=== PATIENT | female | born 1985 | race American Indian/Alaskan Native ===

== ENCOUNTER 2022-02-03 01:45 | Emergency (ER) | payer SELFPAY ==
--- NOTE | 2022-02-03 02:12 | Emergency Department Report ---
ED General Adult HPI - General Chief complaint: Eye Problems Stated complaint: I put some glue in my eye by accident Time Seen by Provider: 02/03/22 01:59 Source: patient, RN notes reviewed Mode of arrival: Ambulatory Limitations: No Limitations - History of Present Illness Initial comments: The patient is a pleasant 36-year-old female who reports that she is not , who wears contact lenses and glasses, who presents to the ER today with a complaint of right-sided eye discomfort and pain, after accidentally putting glue instead of eyedrops into her right eye. She washed her eyes out at home. She has mild burning pain. She has no loss of vision. She has some discomfort when she looks to the right. She is concerned about a retained cont act lens. She denies additional injuries and complaints. -: hour(s) Location: eyes (Right) Radiation: non-radiation Quality: aching Consistency: constant Improves with: medication Worsens with: movement - Related Data Previous Rx's Medication Instructions Recorded Last Taken Type Bacitracin [Bacitracin Ophth] 1 applicatio OD Q4HR 7 Days #1 tube 02/03/22 Unknown Rx Mineral Oil/Petrolatum,White 1 applic OD PRN PRN #1 bottle 02/03/22 Unknown Rx [Refresh Lacri-Lube Ointment] Allergies Allergy/AdvReac Type Severity Reaction Status Date / Time No Known Allergies Allergy Verified 02/03/22 02:20 ED Review of Systems ROS: Stated complaint: EYE INJURY Other details as noted in HPI Comment: All other systems reviewed and negative Constitutional: denies: fever Eyes: eye pain, eye discharge, vision change (Blurry vision) ED Past Medical Hx - Medications Home Medications: Home Medications Medication Instructions Recorded Confirmed Last Taken Type Bacitracin [Bacitracin Ophth] 1 applicatio OD Q4HR 7 Days #1 tube 02/03/22 Unknown Rx Mineral Oil/Petrolatum,White 1 applic OD PRN PRN #1 bottle 02/03/22 Unknown Rx [Refresh Lacri-Lube Ointment] ED Physical Exam - General Limitations: No Limitations General appearance: alert, in no apparent distress - Head Head exam: Present: atraumatic, normocephalic - Eye Eye exam: Present: normal appearance, PERRL, EOMI, scleral icterus, other (There is no direct or consensual photophobia. There is a negative Fermín sign. There is minimal fluorescein uptake at 12:00 on the cornea. There is no obvious retained contact lens). Absent: nystagmus, periorbital swelling, periorbital tenderness - ENT ENT exam: Present: normal exam, normal orophraynx, mucous membranes moist, normal external ear exam - Neck Neck exam: Present: normal inspection, full ROM. Absent: tenderness, meningismus - Respiratory Respiratory exam: Present: normal lung sounds bilaterally. Absent: respiratory distress, wheezes, rales, rhonchi, stridor, decreased breath sounds - Cardiovascular Cardiovascular Exam: Present: regular rate, normal rhythm, normal heart sounds. Absent: bradycardia, tachycardia, irregular rhythm, systolic murmur, diastolic murmur, rubs, gallop - GI/Abdominal GI/Abdominal exam: Present: soft. Absent: distended, tenderness, guarding, rebound, rigid, pulsatile mass - Extremities Exam Extremities exam: Present: normal inspection, full ROM, other (2+ pulses noted in the bilateral upper and lower extremities. There is no palpable cord. negative Homans sign. Muscular compartments are soft. The pelvis is stable.). Absent: pedal edema, calf tenderness - Back Exam Back exam: Present: normal inspection, full ROM. Absent: tenderness, CVA tenderness (R), CVA tenderness (L), paraspinal tenderness, vertebral tenderness - Neurological Exam Neurological exam: Present: alert, oriented X3, normal gait, other (No facial droop. Tongue midline. Extraocular movements intact bilaterally. Facial sensation intact to light touch in V1, V2, V3 distribution bilaterally. 5 and a 5 strength in 4 extremities. Sensation intact to light touch in 4 extremities.). Absent: motor sensory deficit - Psychiatric Psychiatric exam: Present: anxious - Skin Skin exam: Present: warm, dry, intact, normal color. Absent: rash ED Course Vital Signs 02/03/22 01:52 Temperature 98.3 F Pulse Rate 99 H Respiratory 16 Rate Blood Pressure 138/92 O2 Sat by Pulse 97 Oximetry ED Medical Decision Making - Lab Data Vital Signs 02/03/22 01:52 Temperature 98.3 F Pulse Rate 99 H Respiratory 16 Rate Blood Pressure 138/92 O2 Sat by Pulse 97 Oximetry - Medical Decision Making Differential diagnosis, including but not limited to: Chemical exposure, corneal abrasion Assessment and plan: 36-year-old female with isolated right-sided eye pain, after accidental glue exposure and instillation. She washed her eyes out at home. Patient is taken back by me to the eyewash station, and she thoroughly irrigated her right eye for about 20 minutes. Visual acuity intact to finger counting, color perception, reading at a close distance She has no Fermín sign, and minimal fluorescein uptake at 12:00. The eye itself, and the superior and inferior eyelids are everted, and thoroughly examined, and a retained contact lens or foreign body is not identified. Start patient on artificial tears, and appropriate topical antibiotic drops. Patient strongly encouraged to follow-up closely with an outpatient lace and textiles restorer or employer relations representative, and also to not place contact lenses on her right eye until cleared to do so by an ocular specialist. She had some improvement in symptoms with initiation/application of tetracaine to the right eye, and she has no additional injuries or complaints. Return precautions reviewed. All questions answered. Critical care attestation.: If time is entered above; I have spent that time in minutes in the direct care of this critically ill patient, excluding procedure time. ED Disposition Clinical Impression: Chemical exposure of eye Disposition: 01 HOME / SELF CARE / HOMELESS Is pt being admited?: No Does the pt Need Aspirin: No Condition: Good Instructions: Chemical Conjunctivitis, Adult Additional Instructions: Patient may wear glasses, but should not wear contact lenses in her right eye until cleared to do so by an lace and textiles restorer or employer relations representative. Use the artificial tears as often as as needed for dry eye and right-sided ocular discomfort, and use the antibiotic ointment as directed. Recommend follow-up with an lace and textiles restorer or employer relations representative within the next 3 to 5 days for repeat checkup and evaluation. Patient may take [id number] Tylenol or ibuprofen as needed for physical pain. Please return to the emergency room right away with new pain, worsened pain, migration of pain, projectile vomiting, change in mental status, confusion, inability tolerate liquid feeds, new, worsened or different symptoms not present on the initial emergency room evaluation Referrals: KRISTINE RODRIGUEZ MD [Primary Care Provider] - 3-5 Days CHELSY HAMILTON MD [Staff Physician] - 3-5 Days CHARLENE KAUR MD [Staff Physician] - 3-5 Days GENEVA MEADOWS MD [Staff Physician] - 3-5 Days Forms: Work/School Release Form(ED)
[2022-02-03] MEDS ORDERED: ACETAMINOPHEN 325 MG TAB PO ONE (02:57)
[2022-02-03] MEDS ORDERED: TETRACAINE 0.5% OPHTH SOLN 4ML OS ONE (03:01)
[2022-02-03] MEDS ORDERED: FLUORESCEIN 1 MG STRIP OP ONE (03:04)
[2022-02-03 03:27] VITALS: BP 118/87
== END 2022-02-03 03:30 | disposition home or self-care (01) ==
LOC: ED 01:45
DX: T26.92XA Corrosion of left eye and adnexa, part unspecified, initial encounter (principal); X58.XXXA Exposure to other specified factors, initial encounter; Y93.89 Activity, other specified; Y92.89 Other specified places as the place of occurrence of the external cause; Y99.8 Other external cause status
CPT/HCPCS: 99283

== ENCOUNTER 2022-02-25 10:41 | Emergency (ER) | payer BC | END 2022-02-25 17:47 | disposition left against medical advice (07) | LOC: ED 10:41 | DX: M79.641 Pain in right hand (principal); M79.642 Pain in left hand; Z53.21 Procedure and treatment not carried out due to patient leaving prior to being seen by health care provider ==